=== PATIENT | male | born 1950 | race Caucasian/White ===

== ENCOUNTER 2021-06-11 17:45 | Inpatient (IN) | payer MEDICARE, MEDICAID ==
[~2021-06-11] VITALS: Ht 175.3 cm; Wt 68.0 kg
[2021-06-11 18:54] VITALS: BP 113/75
[2021-06-11 20:00] VITALS: BP 128/70
[2021-06-11] MEDS ORDERED: SENNOSIDES 8.6MG TABLET PO PRN (23:30)
[2021-06-11] MEDS ORDERED: NITROGLYCERIN 0.4MG TABLET SL SL PRN (23:30)
[2021-06-11] MEDS ORDERED: CALCIUM CARBONATE 500MG TABLET CHEW PO PRN (23:30)
[2021-06-11] MEDS ORDERED: LIDOCAINE 5% PATCH TOP PRN (23:30)
[2021-06-11] MEDS ORDERED: POLYETHYLENE GLYCOL 3350 (17GM) 1 DOSE PACK PO PRN (23:30)
[2021-06-11] MEDS ORDERED: IPRATROPIUM BROMIDE (0.02%) 0.5MG/2.5ML NEB HHN PRN (23:30)
[2021-06-11] MEDS ORDERED: ALBUTEROL (0.083%) 2.5MG/3ML NEB HHN PRN (23:30)
[2021-06-11] MEDS ORDERED: NON FORMULARY PATIENT HOME MED XX SCH ×3 (23:30)
[2021-06-11] MEDS ORDERED: ACETAMINOPHEN 325MG TABLET PO PRN (23:30)
[2021-06-12] MEDS ORDERED: *PATIENT'S OWN MEDICATION STORAGE XX SCH (01:00)
[2021-06-12] MEDS ORDERED: LOPERAMIDE 2MG/15ML UDC PO PRN (02:00)
[2021-06-12] MEDS: PANTOPRAZOLE 40MG DR TABLET PO SCH ×2 (06:23→09:33)
[2021-06-12 06:37] LABS: BASOPHILS % 0.7 % (0.0-2.0); EOSINOPHILS % 1.4 % (0.0-5.0); HEMATOCRIT. 32.9 % (42.0-52.0); LYMPHOCYTES % 31.5 % (20.0-50.0); MEAN CORPUSCULAR HEMOGLOBIN 27.9 pg (28.0-32.0); MEAN CORPUSCULAR VOLUME 83.1 fL (80.0-94.0); MONOCYTES % 6.8 % (2.0-8.0); NEUTROPHILS % 59.6 % (40.0-76.0); PLATELET 434 x1000/uL (130-400); RED BLOOD CELL COUNT 3.96 mill/uL (4.7-6.1); RED CELL DISTRIBUTION WIDTH 15.1 % (11.6-14.6)
[2021-06-12 07:04] LABS: CLARITY URINE CLOUDY (CLEAR); COLOR URINE YELLOW (YELLOW); KETONES URINE NEGATIVE (NEGATIVE); LEUKOCYTE ESTERASE URINE 3+ (NEGATIVE); NITRITE URINE POSITIVE (NEGATIVE); OCCULT BLOOD URINE TRACE (NEGATIVE); PROTEIN URINE NEGATIVE (NEGATIVE); SPECIFIC GRAVITY URINE 1.011 (1.005-1.030); UROBILINOGEN URINE 0.2 E.U./dL (0.2-1.0)
[2021-06-12 08:00] VITALS: BP 115/75
[2021-06-12 08:27] LABS: CHLORIDE 106 mEq/L (98-107)
[2021-06-12] MEDS ORDERED: METOPROLOL SUCCINATE 50MG ER TABLET PO SCH (09:00)
[2021-06-12] MEDS: TICAGRELOR 90 MG TABLET PO SCH ×2 (09:33→21:35)
[2021-06-12] MEDS: SODIUM CHLORIDE 45ML SPRAY NS SCH ×3 (09:34→18:33)
[2021-06-12] MEDS: ENOXAPARIN 40MG/0.4ML SYR SUBCUT SCH (09:34)
[2021-06-12] MEDS: CARVEDILOL 3.125 MG TABLET PO SCH ×2 (10:00→21:35)
[2021-06-12] MEDS ORDERED: IPRATROPIUM/ALBUTEROL 0.5-3(2.5)MG/3ML NEB HHN PRN (18:15)
[2021-06-12 20:00] VITALS: BP 115/71
[2021-06-13 07:53] LABS: BASOPHILS % 0.8 % (0.0-2.0); EOSINOPHILS % 1.4 % (0.0-5.0); HEMATOCRIT. 33.3 % (42.0-52.0); HEMOGLOBIN. 11.3 g/dL (14.0-18.0); LYMPHOCYTES % 22.9 % (20.0-50.0); MEAN CORPUSCULAR HEMOGLOBIN 28.2 pg (28.0-32.0); MEAN CORPUSCULAR VOLUME 83.2 fL (80.0-94.0); MEAN PLATELET VOLUME 7.1 fl (7.4-10.4); MONOCYTES % 7.2 % (2.0-8.0); NEUTROPHILS % 67.7 % (40.0-76.0); PLATELET 404 x1000/uL (130-400); RED CELL DISTRIBUTION WIDTH 15.1 % (11.6-14.6)
[2021-06-13 08:00] VITALS: BP 103/68
[2021-06-13 08:33] LABS: FOLIC ACID (FOLATE) SERUM 12.6 ng/mL (>5.38)
[2021-06-13] MEDS: ENOXAPARIN 40MG/0.4ML SYR SUBCUT SCH (08:37)
[2021-06-13] MEDS: TICAGRELOR 90 MG TABLET PO SCH ×2 (08:37→22:44)
[2021-06-13] MEDS: SODIUM CHLORIDE 45ML SPRAY NS SCH ×3 (08:37→17:34)
[2021-06-13] MEDS: CARVEDILOL 3.125 MG TABLET PO SCH ×2 (08:38→21:00)
[2021-06-13] MEDS ORDERED: CEFTRIAXONE 1 G PREMIX 50 ML IV SCH (09:15)
[2021-06-13 09:26] LABS: CHLORIDE 105 mEq/L (98-107)
[2021-06-13 09:31] LABS: TOTAL IRON BINDING CAPACITY 194 ug/dL (250-450)
[2021-06-13] MEDS ORDERED: CEFTRIAXONE 1,000 MG in DEXTROSE 5% WATER 50 ML IV SCH (11:00)
[2021-06-13] MEDS: IPRATROPIUM/ALBUTEROL 0.5-3(2.5)MG/3ML NEB HHN SCH (13:15)
[2021-06-13] MEDS: LACTOBACILLUS GG CAPSULE PO SCH (17:35)
[2021-06-13 20:00] VITALS: BP 100/64
[2021-06-13] MEDS: CEFTRIAXONE 1,000 MG in DEXTROSE 5% WATER 50 ML IV SCH (22:45)
[2021-06-14] MEDS: PANTOPRAZOLE 40MG DR TABLET PO SCH (07:19)
[2021-06-14 08:00] VITALS: BP 108/53
[2021-06-14] MEDS: IPRATROPIUM/ALBUTEROL 0.5-3(2.5)MG/3ML NEB HHN SCH ×2 (08:04→21:12)
[2021-06-14] MEDS: CARVEDILOL 3.125 MG TABLET PO SCH ×2 (09:00→20:16)
[2021-06-14] MEDS: SODIUM CHLORIDE 45ML SPRAY NS SCH ×3 (09:00→17:00)
[2021-06-14] MEDS: TICAGRELOR 90 MG TABLET PO SCH ×2 (10:14→20:15)
[2021-06-14] MEDS: LACTOBACILLUS GG CAPSULE PO SCH (10:15)
[2021-06-14] MEDS: ENOXAPARIN 40MG/0.4ML SYR SUBCUT SCH (10:16)
[2021-06-14] MEDS: PSYLLIUM SEED PACKET PO SCH ×3 (10:16→17:00)
[2021-06-14] MEDS: ASPIRIN 81MG EC TABLET PO SCH (10:16)
[2021-06-14] MEDS: MAGNESIUM/ALUMINUM HYDROXIDE/SIMETHICONE 30ML UDC PO PRN (10:17)
[2021-06-14] MEDS: LIDOCAINE 5% PATCH TOP PRN (10:19)
[2021-06-14] MEDS: CYANOCOBALAMIN 1000MCG/ML VIAL IM SCH (10:33)
[2021-06-14 20:00] VITALS: BP 99/70
[2021-06-14] MEDS: CEFTRIAXONE 1,000 MG in DEXTROSE 5% WATER 50 ML IV SCH (20:14)
[2021-06-15] MEDS: IPRATROPIUM/ALBUTEROL 0.5-3(2.5)MG/3ML NEB HHN SCH ×4 (02:47→20:45)
[2021-06-15] MEDS: PANTOPRAZOLE 40MG DR TABLET PO SCH (06:48)
[2021-06-15 08:00] VITALS: BP 113/80
[2021-06-15] MEDS: CYANOCOBALAMIN 1000MCG/ML VIAL IM SCH (08:54)
[2021-06-15] MEDS: CARVEDILOL 3.125 MG TABLET PO SCH ×2 (08:56→20:46)
[2021-06-15] MEDS: LACTOBACILLUS GG CAPSULE PO SCH (08:58)
[2021-06-15] MEDS: TICAGRELOR 90 MG TABLET PO SCH ×2 (08:58→20:46)
[2021-06-15] MEDS: ASPIRIN 81MG EC TABLET PO SCH (08:58)
[2021-06-15] MEDS: ENOXAPARIN 40MG/0.4ML SYR SUBCUT SCH (08:59)
[2021-06-15] MEDS: SODIUM CHLORIDE 45ML SPRAY NS SCH ×2 (09:00→15:43)
[2021-06-15] MEDS: LIDOCAINE 5% PATCH TOP PRN ×2 (09:00→10:24)
[2021-06-15] MEDS: PSYLLIUM SEED PACKET PO SCH ×2 (09:01→13:30)
[2021-06-15] MEDS: MAGNESIUM/ALUMINUM HYDROXIDE/SIMETHICONE 30ML UDC PO PRN (10:23)
[2021-06-15 20:00] VITALS: BP 105/69
[2021-06-15] MEDS: CEFTRIAXONE 1,000 MG in DEXTROSE 5% WATER 50 ML IV SCH (20:46)
[2021-06-15] MEDS ORDERED: MELATONIN 3MG TABLET PO PRN (21:00)
[2021-06-16] MEDS: PANTOPRAZOLE 40MG DR TABLET PO SCH ×2 (06:04→09:04)
[2021-06-16 08:00] VITALS: BP 117/61
[2021-06-16] MEDS: IPRATROPIUM/ALBUTEROL 0.5-3(2.5)MG/3ML NEB HHN SCH ×3 (08:18→20:56)
[2021-06-16] MEDS: ASPIRIN 81MG EC TABLET PO SCH (09:03)
[2021-06-16] MEDS: TICAGRELOR 90 MG TABLET PO SCH ×2 (09:03→20:23)
[2021-06-16] MEDS: LACTOBACILLUS GG CAPSULE PO SCH (09:03)
[2021-06-16] MEDS: CYANOCOBALAMIN 1000MCG/ML VIAL IM SCH (09:04)
[2021-06-16] MEDS: PSYLLIUM SEED PACKET PO SCH ×3 (09:05→17:53)
[2021-06-16] MEDS: ENOXAPARIN 40MG/0.4ML SYR SUBCUT SCH (09:05)
[2021-06-16] MEDS: SODIUM CHLORIDE 45ML SPRAY NS SCH ×3 (09:05→17:53)
[2021-06-16] MEDS: CARVEDILOL 3.125 MG TABLET PO SCH ×3 (09:08→20:27)
[2021-06-16] MEDS: CEPHALEXIN 250MG CAPSULE PO SCH (17:54)
[2021-06-16 20:00] VITALS: BP 113/78
[2021-06-17] MEDS: IPRATROPIUM/ALBUTEROL 0.5-3(2.5)MG/3ML NEB HHN SCH ×3 (06:00→14:05)
[2021-06-17] MEDS: PANTOPRAZOLE 40MG DR TABLET PO SCH (06:46)
[2021-06-17] MEDS: CEPHALEXIN 250MG CAPSULE PO SCH ×3 (06:47→21:19)
[2021-06-17 08:00] VITALS: BP 107/76
[2021-06-17] MEDS: CARVEDILOL 3.125 MG TABLET PO SCH ×2 (09:00→21:21)
[2021-06-17] MEDS: PSYLLIUM SEED PACKET PO SCH ×3 (09:00→17:00)
[2021-06-17] MEDS: LACTOBACILLUS GG CAPSULE PO SCH (09:17)
[2021-06-17] MEDS: CYANOCOBALAMIN 1000MCG/ML VIAL IM SCH (09:17)
[2021-06-17] MEDS: ASPIRIN 81MG EC TABLET PO SCH (09:17)
[2021-06-17] MEDS: TICAGRELOR 90 MG TABLET PO SCH ×2 (09:17→21:20)
[2021-06-17] MEDS: SODIUM CHLORIDE 45ML SPRAY NS SCH ×3 (09:17→17:19)
[2021-06-17] MEDS: ENOXAPARIN 40MG/0.4ML SYR SUBCUT SCH (09:17)
[2021-06-17 20:00] VITALS: BP 112/70
[2021-06-18] MEDS: IPRATROPIUM/ALBUTEROL 0.5-3(2.5)MG/3ML NEB HHN SCH ×4 (00:20→22:11)
[2021-06-18] MEDS: PANTOPRAZOLE 40MG DR TABLET PO SCH (06:05)
[2021-06-18] MEDS: CEPHALEXIN 250MG CAPSULE PO SCH ×3 (06:15→21:49)
[2021-06-18] MEDS: SODIUM CHLORIDE 45ML SPRAY NS SCH ×3 (09:11→16:59)
[2021-06-18] MEDS: CYANOCOBALAMIN 1000MCG/ML VIAL IM SCH (09:11)
[2021-06-18] MEDS: CARVEDILOL 3.125 MG TABLET PO SCH ×2 (09:12→21:36)
[2021-06-18] MEDS: TICAGRELOR 90 MG TABLET PO SCH ×2 (09:12→21:37)
[2021-06-18] MEDS: LACTOBACILLUS GG CAPSULE PO SCH (09:13)
[2021-06-18] MEDS: ASPIRIN 81MG EC TABLET PO SCH (09:13)
[2021-06-18] MEDS: PSYLLIUM SEED PACKET PO SCH ×3 (09:13→16:59)
[2021-06-18] MEDS: ENOXAPARIN 40MG/0.4ML SYR SUBCUT SCH (09:13)
[2021-06-18] MEDS: LIDOCAINE 5% PATCH TOP PRN (09:14)
[2021-06-18] MEDS: MAGNESIUM/ALUMINUM HYDROXIDE/SIMETHICONE 30ML UDC PO PRN (09:14)
[2021-06-18 17:06] LABS: 25-HYDROXY VITAMIN D3 26 ng/mL (.)
[2021-06-18 20:00] VITALS: BP 114/83
[2021-06-19] MEDS: IPRATROPIUM/ALBUTEROL 0.5-3(2.5)MG/3ML NEB HHN SCH ×4 (02:00→20:48)
[2021-06-19] MEDS: PANTOPRAZOLE 40MG DR TABLET PO SCH (06:27)
[2021-06-19] MEDS: CEPHALEXIN 250MG CAPSULE PO SCH ×2 (06:34→13:52)
[2021-06-19 07:14] LABS: HEMATOCRIT 32.9 % (42.0-52.0); MEAN CORPUSCULAR VOLUME 83.7 fL (80.0-94.0); PLATELET 319 x1000/uL (130-400); RED BLOOD CELL COUNT 3.94 mill/uL (4.7-6.1); RED CELL DISTRIBUTION WIDTH 15.4 % (11.6-14.6)
[2021-06-19 07:21] LABS: CHLORIDE 106 mEq/L (98-107)
[2021-06-19 08:00] VITALS: BP 111/72
[2021-06-19] MEDS: CYANOCOBALAMIN 1000MCG/ML VIAL IM SCH (09:43)
[2021-06-19] MEDS: SODIUM CHLORIDE 45ML SPRAY NS SCH ×3 (09:44→16:16)
[2021-06-19] MEDS: TICAGRELOR 90 MG TABLET PO SCH ×2 (09:44→21:05)
[2021-06-19] MEDS: LACTOBACILLUS GG CAPSULE PO SCH (09:45)
[2021-06-19] MEDS: PSYLLIUM SEED PACKET PO SCH ×3 (09:45→16:17)
[2021-06-19] MEDS: CARVEDILOL 3.125 MG TABLET PO SCH ×2 (09:45→21:07)
[2021-06-19] MEDS: ASPIRIN 81MG EC TABLET PO SCH (09:45)
[2021-06-19] MEDS: ENOXAPARIN 40MG/0.4ML SYR SUBCUT SCH (09:56)
[2021-06-19 20:00] VITALS: BP 128/71
[2021-06-20] MEDS: IPRATROPIUM/ALBUTEROL 0.5-3(2.5)MG/3ML NEB HHN SCH ×3 (00:11→20:48)
[2021-06-20] MEDS: PANTOPRAZOLE 40MG DR TABLET PO SCH (06:25)
[2021-06-20 08:00] VITALS: BP 94/64
[2021-06-20] MEDS: CARVEDILOL 3.125 MG TABLET PO SCH ×2 (09:00→21:13)
[2021-06-20] MEDS: TICAGRELOR 90 MG TABLET PO SCH ×2 (09:01→21:13)
[2021-06-20] MEDS: LACTOBACILLUS GG CAPSULE PO SCH (09:02)
[2021-06-20] MEDS: ENOXAPARIN 40MG/0.4ML SYR SUBCUT SCH (09:03)
[2021-06-20] MEDS: PSYLLIUM SEED PACKET PO SCH ×3 (09:03→16:14)
[2021-06-20] MEDS: ASPIRIN 81MG EC TABLET PO SCH (09:03)
[2021-06-20] MEDS: CYANOCOBALAMIN 1000MCG/ML VIAL IM SCH (09:03)
[2021-06-20] MEDS: SODIUM CHLORIDE 45ML SPRAY NS SCH ×4 (09:04→16:13)
[2021-06-20] MEDS ORDERED: ERGOCALCIFEROL 50000UNITS CAPSULE PO SCH (13:00)
[2021-06-20] MEDS ORDERED: [UNRECOGNIZED DRUG - OTHER] PO SCH (14:00)
[2021-06-20 20:00] VITALS: BP 122/84
[2021-06-20] MEDS ORDERED: BALSAM PERU TOP SCH (21:00)
[2021-06-20] MEDS ORDERED: CASTOR OIL TOP SCH (21:00)
[2021-06-21] MEDS: IPRATROPIUM/ALBUTEROL 0.5-3(2.5)MG/3ML NEB HHN SCH ×4 (02:42→20:29)
[2021-06-21] MEDS: PANTOPRAZOLE 40MG DR TABLET PO SCH (06:06)
[2021-06-21 08:00] VITALS: BP 107/73
[2021-06-21] MEDS: CARVEDILOL 3.125 MG TABLET PO SCH ×2 (09:00→21:36)
[2021-06-21] MEDS: LACTOBACILLUS GG CAPSULE PO SCH (09:14)
[2021-06-21] MEDS: SODIUM CHLORIDE 45ML SPRAY NS SCH ×3 (09:14→17:11)
[2021-06-21] MEDS: TICAGRELOR 90 MG TABLET PO SCH ×2 (09:14→21:33)
[2021-06-21] MEDS: ENOXAPARIN 40MG/0.4ML SYR SUBCUT SCH (09:21)
[2021-06-21] MEDS: PSYLLIUM SEED PACKET PO SCH ×3 (09:21→17:11)
[2021-06-21] MEDS: ASPIRIN 81MG EC TABLET PO SCH (09:22)
[2021-06-21] MEDS ORDERED: ASPI-1406 PO (15:38)
[2021-06-21] MEDS ORDERED: COR3 PO (15:38)
[2021-06-21] MEDS ORDERED: PANT40TA51 PO (15:38)
[2021-06-21] MEDS ORDERED: TICA90TA PO (15:38)
[2021-06-21 20:00] VITALS: BP 109/66
[2021-06-22] MEDS: IPRATROPIUM/ALBUTEROL 0.5-3(2.5)MG/3ML NEB HHN SCH ×3 (03:05→14:59)
[2021-06-22] MEDS: PANTOPRAZOLE 40MG DR TABLET PO SCH (06:29)
[2021-06-22 08:00] VITALS: BP 105/69
[2021-06-22] MEDS: SODIUM CHLORIDE 45ML SPRAY NS SCH ×3 (08:38→16:30)
[2021-06-22] MEDS: ENOXAPARIN 40MG/0.4ML SYR SUBCUT SCH (08:38)
[2021-06-22] MEDS: ASPIRIN 81MG EC TABLET PO SCH (08:39)
[2021-06-22] MEDS: LACTOBACILLUS GG CAPSULE PO SCH (08:39)
[2021-06-22] MEDS: CARVEDILOL 3.125 MG TABLET PO SCH (08:39)
[2021-06-22] MEDS: TICAGRELOR 90 MG TABLET PO SCH (08:39)
[2021-06-22] MEDS: PSYLLIUM SEED PACKET PO SCH ×3 (08:40→16:30)
[2021-06-22 11:37] VITALS: BP 105/69
[2021-06-27] MEDS ORDERED: CYANOCOBALAMIN 1000MCG/ML VIAL IM SCH (09:00)
== END 2021-06-22 19:35 | disposition home health service (06) | DRG 73 ==
PROVIDERS: ADMIT Physical Medicine & Rehabilitation Spinal Cord Injury Medicine; ATTEND Family Medicine Adult Medicine
DX: G62.81 Critical illness polyneuropathy (principal); I21.19 ST elevation (STEMI) myocardial infarction involving other coronary artery of inferior wall; J96.01 Acute respiratory failure with hypoxia; E46 Unspecified protein-calorie malnutrition; A04.72 Enterocolitis due to Clostridium difficile, not specified as recurrent; N39.0 Urinary tract infection, site not specified; N13.8 Other obstructive and reflux uropathy; Z87.01 Personal history of pneumonia (recurrent); K21.9 Gastro-esophageal reflux disease without esophagitis; Z95.5 Presence of coronary angioplasty implant and graft; Z93.59 Other cystostomy status; Z87.891 Personal history of nicotine dependence; Z87.440 Personal history of urinary (tract) infections; N40.1 Benign prostatic hyperplasia with lower urinary tract symptoms; B96.89 Other specified bacterial agents as the cause of diseases classified elsewhere; E53.8 Deficiency of other specified B group vitamins; I25.10 Atherosclerotic heart disease of native coronary artery without angina pectoris
CPT/HCPCS: 36415; 71045; 80048; 80053; 81003; 82306; 82607; 82728; 82746; 83540; 83550; 83735; 84134; 84443; 85025; 85027; 87077; 87186; 92610; 93005; 93970; 94640; 97110; 97112; 97116; 97150; 97162; 97166; 97530; 97535; J0696; J1650; J3420; J7040; J7060; A4315; J8499